=== PATIENT | male | born 1960 | race Two or more races ===

== ENCOUNTER 2022-12-27 13:10 | Emergency (ER) | payer MEDICAID ==
[~2022-12-27] VITALS: Ht 175.3 cm; Wt 82.6 kg
--- NOTE | 2022-12-27 13:25 | NUR ---
[id number] FROM HOME FOR DIZZINESS "ROOM SPINNING" SINCE YESTERDAY.
--- NOTE | 2022-12-27 13:38 | NUR ---
AGO AND WAS TOLD HE IS NEGATIVE.PT CAME IN DUE TO WEAKNESS AND DIZZINESS THAT STARTED LAST NMIGHT NO MEDICATION TAKEN DESCRIBED PLACE IS MOVING. VOMITED 1X THIS MORNING, YELLOWISH IN COLOR. PT IS + HIV FOR 10YRS, LAST SEEN BY HIS MD 5MONS. PUT ON GOWN , MONITOR AND PULSE. AWAITING FOR MD ORDERS
[2022-12-27 14:17] LABS: BASOPHILS % (AUTO) 0.3 % (0.0-2.0); EOSINOPHILS % (AUTO) 0.1 % (0.0-6.0); HEMATOCRIT 41 % (39-51); HEMOGLOBIN 13.8 g/dL (13.5-17.5); LYMPHOCYTES # (AUTO) 0.6 K/uL (0.8-4.8); LYMPHOCYTES % (AUTO) 8.8 % (20.0-44.0); MEAN CORPUSCULAR HGB CONC 34 g/dl (31.0-36.0); MEAN CORPUSCULAR VOLUME 98 fL (80-96); MONOCYTES # (AUTO) 0.2 K/uL (0.1-1.30); MONOCYTES % (AUTO) 2.9 % (2.0-12.0); NEUTROPHILS % (AUTO) 87.9 % (43.0-81.0); PLATELET COUNT (AUTO) 130 K/uL (150-450); RED BLOOD CELL COUNT(AUTO) 4.17 MIL/uL (4.5-6.0); WHITE BLOOD COUNT (AUTO) 6.8 K/uL (4.3-11.0)
[2022-12-27] MEDS ORDERED: IV NS 0.9% 1,000 ML BAG IV ONE (14:30)
[2022-12-27] MEDS ORDERED: MECLIZINE HCL 12.5 MG TABLET PO ONE ×2 (14:30→18:00)
[2022-12-27] MEDS ORDERED: ONDANSETRON HCL/PF 4 MG/2 ML VIAL IVP ONE (14:30)
[2022-12-27] MEDS ORDERED: ONDANSETRON HCL/PF 4 MG/2 ML VIAL ONE (14:57)
[2022-12-27] MEDS ORDERED: MECLIZINE HCL 25 MG TABLET ONE ×2 (14:57→17:50)
--- NOTE | 2022-12-27 15:00 | NUR ---
MEDICATED ORDERED , NEEDS ATTENDED
[2022-12-27 15:17] LABS: CALCIUM, SERUM 9.2 mg/dL (8.5-10.1); CARBON DIOXIDE 28 mmol/L (21-32); CHLORIDE 105 mmol/L (98-107); CREATININE 0.9 mg/dL (0.6-1.3); GLUCOSE 112 mg/dL (74-106); POTASSIUM 3.9 mmol/L (3.5-5.1); SODIUM SERUM 142 mmol/L (136-145); UREA NITROGEN, BLOOD 14 mg/dL (7-18)
[2022-12-27 15:22] LABS: ALANINE AMINOTRANSFERASE 43 U/L (12-78); ALKALINE PHOSPHATASE 61 U/L (46-116); ASPARTATE AMINOTRANSFERASE 24 U/L (15-37); BILIRUBIN,DIRECT 0.1 mg/dL (0.0-0.2); BILIRUBIN,TOTAL 0.7 mg/dL (0.2-1.0); TOTAL PROTEIN, SERUM 7.8 g/dL (6.4-8.2)
[2022-12-27] MEDS ORDERED: AMLO10TA4 PO (16:59)
[2022-12-27] MEDS ORDERED: MECL-159 PO (16:59)
--- NOTE | 2022-12-27 17:00 | NUR ---
ASKED PATIENT HOW HE GONNA GO HOME , HE SAID I HAVE NO ONE TO PICK ME UP , OFFERED TO GIVE TAP CARD BUT REFUSED. HE SAIDE I QUOTE " HOW MUCH DID YOU PAY FOR YOUR LICENSE , YOURE VERY UNPROFESSIONAL " OFFERED ANOTHER ALTERNATIVE LIKE CALLING FRIENDS OR RELATIVES TO BOOK A RIDE. PATIENTS DISREGARD MY SUGGESTION AND SEEMS TO BE NOT PAYING ATTENTION. CHARGE NURSE MADE AWARE.
--- NOTE | 2022-12-27 17:50 | NUR ---
IV removed. Catheter intact and site benign. Pressure and 4x4 applied to site. No bleeding noted.
--- NOTE | 2022-12-27 17:54 | NUR ---
WHEELED PATIENT BACK TO WAITING ROOM , INSTRUCTED TO WAIT FOR MEDICATION TO TAKE EFFECT BEFORE STANDING. I
[2022-12-27 17:56] VITALS: BP 146/79
--- NOTE | 2022-12-27 17:56 | NUR ---
Patient discharged to home in stable condition. Written and verbal after care instructions given. Patient verbalizes understanding of instruction.
== END 2022-12-27 17:57 | disposition home or self-care (01) ==
LOC: ER 13:14
DX: I10 Essential (primary) hypertension (principal); R42 Dizziness and giddiness; Z60.2 Problems related to living alone
CPT/HCPCS: 99285; 96374; 70450; 71045 ×2; 96361; 93005 ×2; 85025; 80048; 80076; 36415; 84484; 85730; J8597 ×2; J2405; J7030